=== PATIENT | male | born 1975 | race Two or more races ===

== ENCOUNTER 2022-03-22 06:00 | Day surgery (SDC) | payer OTHER ==
[~2022-03-22 06:00] MED LIST: OZEM; [UNRECOGNIZED DRUG - OTHER]
== END 2022-03-22 17:20 | disposition home or self-care (01) ==
LOC: CIR.AMB 06:00
PROVIDERS: ATTEND Surgery Surgery of the Hand
DX: M65.842 Other synovitis and tenosynovitis, left hand (principal); G56.02 Carpal tunnel syndrome, left upper limb; F12.90 Cannabis use, unspecified, uncomplicated; E11.40 Type 2 diabetes mellitus with diabetic neuropathy, unspecified; Z20.822 Contact with and (suspected) exposure to COVID-19

== ENCOUNTER 2024-05-09 19:31 | Emergency (ER) | payer OTHER ==
[~2024-05-09] VITALS: Ht 185.4 cm; Wt 108.9 kg
[2024-05-09] MEDS ORDERED: CEFTRIAXONE SODIUM 1,000 MG VIAL IM STA (20:43)
== END 2024-05-09 20:56 | disposition home or self-care (01) ==
LOC: ER 19:34
DX: H10.89 Other conjunctivitis (principal)